=== PATIENT | female | born 1995 | race Two or more races ===

== ENCOUNTER 2019-08-07 05:17 | Day surgery (SDC) | payer OTHER ==
[~2019-08-07] VITALS: Ht 160 cm; Wt 75.7 kg
== END 2019-08-07 13:00 | disposition home or self-care (01) ==
LOC: ER 05:17 → CIR.AMB 09:34 → O/R 09:34 → ER 09:34 → EDSTATUS 10:00 → CIR.AMB 13:00 → O/R 15:00
PROVIDERS: ATTEND General Practice
DX: O03.4 Incomplete spontaneous abortion without complication (principal)

== ENCOUNTER 2019-10-07 12:00 | Emergency (ER) | payer OTHER ==
[~2019-10-07] VITALS: Ht 160 cm; Wt 71.7 kg
== END 2019-10-07 14:42 | disposition home or self-care (01) ==
LOC: ER 12:00
DX: K80.80 Other cholelithiasis without obstruction (principal); Z03.818 Encounter for observation for suspected exposure to other biological agents ruled out; R10.13 Epigastric pain; R11.0 Nausea

== ENCOUNTER 2019-11-08 16:59 | Emergency (ER) | payer OTHER ==
[~2019-11-08] VITALS: Ht 160 cm; Wt 79.4 kg
[2019-11-08] MEDS ORDERED: PRENATALES (17:13)
== END 2019-11-08 22:45 | disposition home or self-care (01) ==
LOC: ER 16:59
DX: O20.0 Threatened abortion (principal)

== ENCOUNTER 2019-11-13 18:37 | Emergency (ER) | payer OTHER ==
[~2019-11-13] VITALS: Ht 160 cm; Wt 81.6 kg
[~2019-11-13 18:37] MED LIST: PRENATALES
== END 2019-11-13 22:15 | disposition home or self-care (01) ==
LOC: ER 18:37
DX: O20.0 Threatened abortion (principal); O34.81 Maternal care for other abnormalities of pelvic organs, first trimester; N83.292 Other ovarian cyst, left side; Z34.01 Encounter for supervision of normal first pregnancy, first trimester

== ENCOUNTER 2020-02-21 13:39 | Outpatient (CLI) | payer OTHER ==
[2020-02-21] MEDS ORDERED: CHILDREN'S ASPI81 MG PO (16:20)
== END 2020-02-21 18:42 | disposition home or self-care (01) ==
LOC: OBS/DEL 13:39
PROVIDERS: ATTEND Obstetrics & Gynecology
DX: O26.842 Uterine size-date discrepancy, second trimester (principal); O26.892 Other specified pregnancy related conditions, second trimester; O60.02 Preterm labor without delivery, second trimester; R10.2 Pelvic and perineal pain; O36.5120 Maternal care for known or suspected placental insufficiency, second trimester, not applicable or unspecified

== ENCOUNTER 2020-03-03 01:42 | Outpatient (CLI) | payer OTHER ==
[~2020-03-03 01:42] MED LIST changes: +CHILDREN'S ASPI81 MG PO
[2020-03-03] MEDS ORDERED: PRENATAL TABLE1 EAC1 PO (02:21)
[2020-03-03] MEDS ORDERED: ADULT LOW DOSE81 M1 PO (02:22)
== END 2020-03-03 12:46 | disposition home or self-care (01) ==
LOC: OBS/DEL 01:42
PROVIDERS: ATTEND Obstetrics & Gynecology
DX: O26.892 Other specified pregnancy related conditions, second trimester (principal); N89.8 Other specified noninflammatory disorders of vagina